=== PATIENT | female | born 1950 | race Caucasian/White ===

== ENCOUNTER 2024-10-26 12:07 | Emergency (ER) | payer MEDICARE, OTHER, SELFPAY ==
[2024-10-26 12:17] VITALS: BP 165/98
--- NOTE | 2024-10-26 14:07 | ED.MUSCINJ ---
HPI-Injury
General
Chief Complaint: Fall
Source: patient
Exam Limitations: none
Time Seen by Provider: 10/26/24 13:58
History of Present Illness-Injury
Initial Injury comments:
73-year-old female not anticoagulated presents after trip and fall forward. She landed face first on pavement. She noted bleeding from her nose and swelling and pain from her nose. No known loss of conscious. No significant neck pain. She is
healthy otherwise. No other complaints at this time
Phy Exam
Physical Exam
Physical Exam:
General: Well-appearing female no acute respiratory distress HEENT: Normocephalic
The nose is swollen and tender diffusely. No active bleeding dentition appears well pupils equal round reactive to light extraocular's are intact TMs normal
Heart: Regular rate and rhythm no murmurs
Lungs: Clear no wheeze
Musculoskeletal exam: Cervical spine is nontender to palpation
Neurologic normal gait conversing appropriately
Injury Course
Orders/Labs/Results
Orders:
Orders
10/26/24 12:45
Cervical Spine wo Contrast CT [CT Cervical Spine W/o Iv Contr] Urgent
Comment:
Reason For Exam: fall
10/26/24 12:49
CT Facial Bones W/o Iv Contras Urgent
Comment:
Reason For Exam: fall
CT Head W/o Iv Contrast Urgent
Comment:
Reason For Exam: fall
MDM/Problems Addressed
Differential Diagnosis Includes:
Mechanical fall forward consider nasal fracture versus contusion also concern for cervical spine injury or intracranial hemorrhage. CT of the head face and cervical spine were ordered all of which were negative for acute fractures or intracranial
hemorrhage. I suspect nasal contusion. Recommended ice Tylenol ibuprofen. Return precautions are given but stable for discharge. Admission not indicated
*Critical Care Note
Total Time (30-74mins, 75-104mins- exclusive of procedures): Not Applicable
ED Attending Note
-
Portions of this chart may have been created with voice recognition software.� Occasional wrong word or��sound alike� substitutions may have occurred due to the inherent limitations of voice recognition software.
Discharge Plan
Departure
Patient Disposition: Home (Routine Discharge)
Date of Disposition: 10/26/24
Time of Disposition: 14:09
Patient with high blood pressure during this ER visit?: No
Discharge Problem:
Contusion, nose
Instructions: Contusion (DC)
Referrals:
Doyle Bell, DO [Family Provider] -
Activity Restrictions/Additional Instructions:
Ice to the nose. You may take Tylenol or ibuprofen for pain. Return here if needed otherwise follow-up with your doctor
Interventions
Interventions:
*Risk Screen - Suicide Last Done: 10/26/24 12:18
*General Assessment Last Done: 10/26/24 12:41
*Neglect/Abuse Screening Last Done: 10/26/24 12:18
*ED- Fall Risk Assessment Last Done: 10/26/24 12:41
*ED COVID-19 Vaccine History Last Done: 10/26/24 12:41
ED-Musculoskeletal Assessment Last Done: 10/26/24 12:41
ED- Neurological Assessment Last Done: 10/26/24 12:41
ED-Skin Assessment Last Done: 10/26/24 12:41
Discharge Date and Time
Print Language: [id number]
[2024-10-26 14:24] VITALS: BP 156/99
== END 2024-10-26 14:24 | disposition home or self-care (01) ==
LOC: EMR 12:07
PROVIDERS: EMERGENCY PHYSICIAN Emergency Medicine; FAMILY PHYSICIAN Family Medicine
DX: S00.33XA Contusion of nose, initial encounter (principal); W01.0XXA Fall on same level from slipping, tripping and stumbling without subsequent striking against object, initial encounter
CPT/HCPCS: 99285; 70450; 70486; 72125